=== PATIENT | male | born 1965 | race Caucasian/White ===

== ENCOUNTER 2020-12-10 20:02 | Emergency (ER) | payer MEDICAID ==
[~2020-12-10] VITALS: Ht 193 cm; Wt 90.7 kg
== END 2020-12-10 23:18 | disposition home or self-care (01) ==
LOC: ED 20:02
DX: E11.65 Type 2 diabetes mellitus with hyperglycemia (principal); J44.9 Chronic obstructive pulmonary disease, unspecified; I11.0 Hypertensive heart disease with heart failure; I50.9 Heart failure, unspecified; F17.200 Nicotine dependence, unspecified, uncomplicated; Z88.5 Allergy status to narcotic agent
CPT/HCPCS: 71045; 80053; 81001; 82010; 82800; 83880; 83930; 85025; 96374; 96375; 99285-25; J1815; J2405; J3010; J7030